=== PATIENT | male | born 1990 | race African-American/Black ===

== ENCOUNTER 2022-07-19 08:33 | Emergency (ER) | payer MEDICAID ==
[~2022-07-19] VITALS: Ht 167.6 cm; Wt 52.2 kg
[2022-07-19 09:15] VITALS: BP 146/109
== END 2022-07-19 09:36 | disposition home or self-care (01) ==
LOC: ER 08:33
DX: M62.838 Other muscle spasm (principal); J45.909 Unspecified asthma, uncomplicated